=== PATIENT | male | born 1995 ===

== ENCOUNTER 2017-03-27 20:36 | Inpatient (IN) | payer MEDICAID ==
--- NOTE | 2017-03-27 21:00 | C.PDOC ---
History Of Present Illness 22 year male presents to the ER requesting detox from heroin, last use was today. Denies ETOH use or physical complaints. Chief Complaint (Nursing): Substance Abuse History Per: Patient History/Exam Limitations: no limitations Onset/Duration Of Symptoms: Hrs Current Symptoms Are (Timing): Still Present Suicide/Self Injury Attempted (Context): None Modifying Factor(s): Narcotics Associated Symptoms: denies: Depression, Suicidal Thoughts, Suicidal Plan Involuntary Hold By: None Recent travel outside of the [place]: No Past Medical History Reviewed: Historical Data, Nursing Documentation, Vital Signs Vital Signs: Last Vital Signs Temp 97.9 F 03/27/17 20:39 Pulse 90 03/27/17 20:39 Resp 16 03/27/17 20:39 BP 101/71 03/27/17 20:39 Pulse Ox 98 03/27/17 21:18 - Medical History PMH: No Chronic Diseases Surgical History: No Surg Hx Family History: States: Unknown Family Hx - Social History Hx Alcohol Use: No Hx Substance Use: Yes - Immunization History Hx Tetanus Toxoid Vaccination: No Hx Influenza Vaccination: No Hx Pneumococcal Vaccination: No Review Of Systems Constitutional: Negative for: Fever, Chills Gastrointestinal: Negative for: Nausea, Vomiting, Diarrhea Physical Exam - Physical Exam Appears: Non-toxic, No Acute Distress Skin: Normal Color, Warm, Dry Head: Atraumatic, Normacephalic Eye(s): bilateral: Normal Inspection Chest: Symmetrical Cardiovascular: Rhythm Regular Respiratory: Normal Breath Sounds, No Rales, No Rhonchi, No Wheezing Neurological/Psych: Oriented x3, Normal Speech, Other (No focal deficits) ED Course And Treatment - Laboratory Results Result Diagrams: 03/27/17 21:00 03/27/17 21:00 O2 Sat by Pulse Oximetry: 98 (Room air) Pulse Ox Interpretation: Normal Progress Note: Blood work and urinalysis ordered. Disposition Discussed With : Jennifer Mcdonnell Doctor Will See Patient In The: Hospital Counseled Patient/Family Regarding: Diagnosis - Disposition Disposition: HOSPITALIZED Disposition Time: 22:44 Condition: STABLE Forms: [facility] (Welsh) - POA Present On Arrival: None - Clinical Impression Clinical Impression: Opiate abuse, continuous, Urinary tract infection - Scribe Statement The provider has reviewed the documentation as recorded by the Scribe Matt Chavarria All medical record entries made by the Scribe were at my direction and personally dictated by me. I have reviewed the chart and agree that the record accurately reflects my personal performance of the history, physical exam, medical decision making, and the department course for this patient. I have also personally directed, reviewed, and agree with the discharge instructions and disposition.
[2017-03-27 21:19] LABS: BASO # 0.1 K/uL (0.0-0.2); BASO % 1.1 % (0.0-2.0); EOS # 0.2 K/uL (0.0-0.7); EOS % 3.1 % (0.0-4.0); HEMATOCRIT 42.7 % (35.0-51.0); LYMPH # 2.5 K/uL (1.0-4.3); LYMPH % 34.2 % (20.0-40.0); MEAN CELL VOLUME 89.2 fL (80.0-94.0); MEAN CORPUSCULAR HEMOGLOBIN 29.5 pg (27.0-31.0); MEAN PLATELET VOLUME 9.5 fL (7.2-11.7); MONO # 0.6 K/uL (0.0-0.8); MONO % 8.8 % (0.0-10.0); RED CELL DISTRIBUTION WIDTH 13.3 % (11.5-14.5); WHITE BLOOD COUNT 7.3 K/uL (4.8-10.8)
[2017-03-27 21:24] LABS: ALB/GLOB RATIO 1.4 (1.0-2.1); ALCOHOL SERUM < 10 mg/dl (0-10); ALKALINE PHOSPHATASE 52 U/L (38-126); ALT/SGPT 29 U/L (21-72); AST/SGOT 18 U/L (17-59); BILIRUBIN,TOTAL 0.6 mg/dL (0.2-1.3); BLOOD UREA NITROGEN 14 mg/dL (9-20); CALCIUM 8.6 mg/dl (8.6-10.4); CARBON DIOXIDE 35 mmol/L (22-30); CHLORIDE 102 mmol/L (98-107); GFR AFRICAN-AMERICAN > 60; GLUCOSE,RANDOM 54 mg/dL (75-110); POTASSIUM 3.7 mmol/L (3.6-5.2); SODIUM 145 mmol/L (132-148); TOTAL PROTEIN 7.5 g/dL (6.3-8.3)
[2017-03-27 22:07] LABS: RBC URINE 2 /hpf (0-3); URINE BACTERIA RARE (<OCC); URINE BILIRUBIN NEGATIVE (NEGATIVE); URINE BLOOD NEGATIVE (NEGATIVE); URINE COLOR Yellow (YELLOW); URINE GLUCOSE (UA) NORMAL (Normal); URINE KETONE NEGATIVE (NEGATIVE); URINE LEUKOCYTE ESTERASE NEG Leu/uL (Negative); URINE PROTEIN NEGATIVE (NEGATIVE); WBC URINE 30 /hpf (0-5)
[2017-03-27] MEDS ORDERED: Aluminum Hydroxide/Magnesium Hydroxide Susp (30 mL) PO PRN (23:18)
--- NOTE | 2017-03-28 06:47 | PCM.BM ---
<Isabella Ma - Last Filed: 03/28/17 06:45> Treatment Plan Problems - Problems identified on initial assessmt Opiates Abuse Date Initiated: 03/27/17 Time Initiated: 23:35 Assessment reference: NA Status: Active Treatment assets and liabiliti Patient Assests: physically healthy, good support system, negotiates basic needs , good past tx response Patient Liabilities: substance abuse (Opiates, Marijuana) - Milieu Protocol Maintain good personal hygiene: daily Encourage regular showers, daily Remind patient to perform daily oral care Conduct patient checks and document Observation sheet: Q15 minutes Maintain personal safety: every shift Educate patient to report safety concerns to staff, every shift Monitor environment for contraband/sharps Medication safety: Monitor for expected outcome, potential side effects: every shift, Assess barriers to learning: every shift, Assess readiness for medication education: every shift <Yuliet Sarmiento - Last Filed: 03/28/17 11:57> Family Contact Family involvement: Famliy/SO not involved Family contact: Patient agrees to contact - Goals for Treatment Patient goals for treatment: Complete detox and discuss aftercare options with counselor. Discharge/Continuing Care - Education Needs Education Needs: Patient Medication, Patient Diagnosis/Disease Process, Patient Coping Skills, Patient Anger Management skills, Patient Placement options, Patient Community resources, Patient Other (grief group offered) - Discharge Discharge Criteria: No longer exhibiting s/s of withdrawal, Reduction of target symptoms Discharge to:: With Family - Treatment Team Participation Patient/Family/SO Statement: 03/28/17 11:59 "I don't know what I wanna do yet..." Discussed with Family/SO: No Was Patient/Family/SO present at Treatment Team Meeting: Yes <Gabriela Mckeon - Last Filed: 03/29/17 00:15> - Diagnosis (1) Opiate abuse, continuous Status: Acute Interventions: 03/29/17 00:15 * Assess 7x/week regarding severity of withdrawal * Educate regarding risks, benefits, side effects and alternatives of medications * Use Motivational Interviewing for abstinence * Use CBT for relapse prevention * Medication management for withdrawal symptoms * Encourage medication assisted treatment *
--- NOTE | 2017-03-28 15:44 | PCM.PSYCH ---
Initial Psychiatric Evaluation - Initial Psychiatric Evaluation Type of Admission: Voluntary Legal Status: Capacity Chief Complaint (in patient's own words): "I want to get off heroin, I dont want to " History of Present Illness and Precipitating Events: This is a 22 year old male who lives with his mother and sister. He is single with no children and does "odd jobs" as employment. Patient reports heroin use, average use 1 bundle daily via smoking or snorting, last used 1 day ago. He reports he first used heroin intermittently 4 years ago and began regular usage about 2 years ago. He also reports Xanax usage, average 4-5 mg daily, last used 1 day ago. He states he was prescribed Xanax about 4 years ago for anxiety due to family issues. He also reports that 2 years ago he found his brother near their house, later discovering that his brother was killed by his best friend. He reports marijuana use for 10+ years and cigarette use at 1 ppd. He denies any alcohol use, cocaine use, PCP use, or other drug use. He denies any previous overdoses or past detox/rehab. He denies attending NA or AA. He denies any external pressure in deciding to attend detox. He reports previous suboxone usage obtained "from the street." He denies any withdrawal symptoms at this time. Past medical history: denies Past psychiatric history: anxiety, depression Family psychiatric history: denies Family substance use: denies Current Medications: Active Medications Generic Name Dose Route Start Last Admin Trade Name Freq PRN Reason Stop Dose Admin Acetaminophen 650 mg 03/27/17 23:18 Tylenol 325mg Tab PO Q4H PRN Fever greater than 101 F Al Hydrox/Mg Hydrox/Simethicone 30 ml 03/27/17 23:18 Maalox 30 Ml PO TID PRN Indigestion / Heartburn Clonidine HCl 0.1 mg 03/27/17 23:18 Catapres PO Q8 PRN COWS Score More or Equal to 5 Hydroxyzine HCl 25 mg 03/27/17 23:20 03/28/17 00:59 Atarax PO 25 mg Q6 PRN Administration Anxiety Loperamide HCl 2 mg 03/27/17 23:18 Imodium PO Q8 PRN Diarrhea Ondansetron HCl 4 mg 03/27/17 23:18 Zofran Tab PO Q8 PRN Nausea/Vomiting Trazodone HCl 50 mg 03/27/17 23:30 03/28/17 00:10 Desyrel PO 50 mg HS SREE Administration Past Psychiatric History - Past Psychiatric History Previous Treatment History: None Pertinent Medical Hx (Current Medical&Sleep Prob, Allergies): Allergies Allergy/AdvReac Type Severity Reaction Status Date / Time No Known Allergies Allergy Verified 03/27/17 20:42 No Known Home Med 03/27/17 Review of Systems - Review of Systems All systems: reviewed and no additional remarkable complaints except - Psychiatric Psychiatric: Anxiety, Depression, Hopelessness, Irritability. absent: Hallucinations, Homicidal Ideation, Suicidal Ideation Mental Status Examination - Personal Presentation Personal Presentation: Looks stated age - Affect Affect: Constricted - Motor Activity Motor Activity: Calm - Reliability in Providing Information Reliability in Providing Information: Poor, due to altered mood - Speech Speech: Disorganized - Mood Mood: Anxious - Formal Thought Process Formal Thought Process: No Impairment - Obsessions/Compulsions Obsessions: No Compulsions: No - Cognitive Functions Sensorium: Alert Attention/Concentration: Attentive Abstract Thinking: [place] Estimate of Intelligence: Average Judgement: Intact, as evidence by: Good judgement Memory: Recent intact, as evidence by: Ability to recall events of the day, Remote intact, as evidenced by: Abilit to recall sig. life events - Risk Risk: Diminished functioning - Strength & Assets Inventory Strength & Assets Inventory: Cooperative - Limitations Limitations: Other DSM 5 DX - DSM 5 DSM 5 Diagnosis: Opioid use disorder severe Opioid withdrawal Tobacco use disorder severe - Recommended/Plan of Treatment Treatment Recommendations and Plan of Treatment: Subutex detox As needed medications Attend groups and activities Supportive therapy and psychoeducation [place] for abstinence CBT for relapse prevention Encourage MAT Refer to rehab or IOP, and self-help groups Smoking cessation with [place] Nicotine patch if requested 31 min Projected ELOS: 4-5 days Prognosis: Good with treatment Discharge Plan and Discharge Criteria: No withdrawal symptoms Refer to rehab - Smoking Cessation Smoking Cessation Initiated: Yes
[2017-03-28] MEDS ORDERED: Buprenorphine Hydrochloride 2 mg SL ONE ×2 (17:59→19:00)
[2017-03-29] MEDS: Buprenorphine Hydrochloride 2 mg SL SCH (09:37)
--- NOTE | 2017-03-29 14:58 | PCM.PYCHPN ---
Psychiatric Progress Note - Psychiatric Progress Note Patient seen today, length of contact: 16 min Patient Chief Complaint: "I'm alright" Problems Identified/Issues Discussed: This patient was seen, chart reviewed, and case discussed with staff. Patient reports good sleep overnight and good appetite yesterday. He continues to deny any withdrawal symptoms. He reports being in good, positive mood. He offers no complaints today. Patient is compliant with medications and denies any side effects. Symptoms are improving but need more time to stabilize. After care discussed, patient hopes to go to [facility]. Support and psychoeducation given. Medication Change: Yes (detox changes daily) Medical Record Reviewed: Yes Mental Status Examination - Cognitive Function Orientation: Person, Place, Situation, Time Memory: Intact Attention: Poor Concentration: Poor Association: WNL Fund of Knowledge: Poor - Mood Mood: Anxious - Affect Affect: Constricted - Speech Speech: Soft - Formal Thought Process Formal Thought Process: No Impairment - Suicidal Ideation Suicidal Ideation: No - Homicidal Ideation Homicidal Ideation: No Goal/Treatment Plan - Goal/Treatment Plan Need for Continued Stay: Severe depression anxiety, Discharge may exacerbated symptoms, Severe functional impairment Progress Toward Problem(s) and Goals/Treatment Plan: Subutex detox As needed medications Attend groups and activities Supportive therapy and psychoeducation [place] for abstinence CBT for relapse prevention Encourage MAT Refer to rehab or IOP, and self-help groups Smoking cessation with [place] Nicotine patch if requested
[2017-03-30] MEDS: Buprenorphine Hydrochloride 2 mg SL SCH (09:43)
[2017-03-30] MEDS ORDERED: Buprenorphine Hydrochloride 2 mg SL ONE (11:45)
--- NOTE | 2017-03-30 15:28 | PCM.PYCHPN ---
Psychiatric Progress Note - Psychiatric Progress Note Patient seen today, length of contact: 16 min Patient Chief Complaint: "I'm good" Problems Identified/Issues Discussed: This patient was seen, chart reviewed, and case discussed with staff. Patient reports no events overnight. He reports good sleep and appetite. He continues to deny any withdrawal symptoms. He continues to report improvement in his mood. Patient initially refused today's dose of Subutex, but agreed to medication changes after discussion. Symptoms are improving but need more time to stabilize After care discussed, was denied form [facility] and hopes to attend IOP in [place], [place]. Support and psychoeducation given. Medication Change: Yes (Subutex taper) Medical Record Reviewed: Yes Mental Status Examination - Cognitive Function Orientation: Person, Place, Situation, Time Memory: Intact Attention: WNL Concentration: Poor Association: WNL Fund of Knowledge: Poor - Mood Mood: Anxious - Affect Affect: Constricted - Speech Speech: Soft - Formal Thought Process Formal Thought Process: No Impairment - Suicidal Ideation Suicidal Ideation: No - Homicidal Ideation Homicidal Ideation: No Goal/Treatment Plan - Goal/Treatment Plan Need for Continued Stay: Severe depression anxiety, Discharge may exacerbated symptoms, Severe functional impairment Progress Toward Problem(s) and Goals/Treatment Plan: Subutex detox As needed medications Attend groups and activities Supportive therapy and psychoeducation [place] for abstinence CBT for relapse prevention Encourage MAT Refer to rehab or IOP, and self-help groups Smoking cessation with [place] Nicotine patch if requested - Smoking Cessation Smoking Cessation Initiated: Yes
[2017-03-30 16:53] VITALS: RESP 18
[2017-03-31 06:15] VITALS: O2SAT 98
--- NOTE | 2017-03-31 07:46 | PCM.PYCHDC ---
Mental Status Examination - Mental Status Examination Orientation: Person Discharge Summary - Discharge Note Consultations:: List each consultation separately and include: 1. Reason for request. 2. Findings. 3. Follow-up Summary of Hospital Course include:: 1. Description of specific treatment plan utilized for patients during their course of treatmen. 2. Summarize the time- course for resolution of acute symptoms and/or regressed behaviors. 3. Describe issues identified and worked on during hospitalization. 4. Describe medication utilized. 5. Describe medical problems identified and treated. 6. Reassessment of suicide risk Summary of Hospital Course: This is a 22 year old male who lives with his mother and sister. He is single with no children and does "odd jobs" as employment. Patient reports heroin use, average use 1 bundle daily via smoking or snorting, last used 1 day ago. He reports he first used heroin intermittently 4 years ago and began regular usage about 2 years ago. He also reports Xanax usage, average 4-5 mg daily, last used 1 day ago. He states he was prescribed Xanax about 4 years ago for anxiety due to family issues. He also reports that 2 years ago he found his brother near their house, later discovering that his brother was killed by his best friend. He reports marijuana use for 10+ years and cigarette use at 1 ppd. He denies any alcohol use, cocaine use, PCP use, or other drug use. He denies any previous overdoses or past detox/rehab. He denies attending NA or AA. He denies any external pressure in deciding to attend detox. He reports previous suboxone usage obtained "from the street." He denies any withdrawal symptoms at this time. Past medical history: denies Past psychiatric history: anxiety, depression Family psychiatric history: denies Family substance use: denies - Diagnosis (1) Opiate abuse, continuous Current Visit: Yes Status: Acute - Final Diagnosis (DSM 5) Condition upon Discharge: STABLE Disposition: HOME/ ROUTINE Follow-up Treatment Plan: Subutex detox As needed medications Attend groups and activities Supportive therapy and psychoeducation [place] for abstinence CBT for relapse prevention Encourage MAT Refer to rehab or IOP, and self-help groups Smoking cessation with [place] Nicotine patch if requested Prescriptions/Medication Reconciliation: traZODone [Desyrel] 50 mg PO HS #30 tab
[2017-03-31] MEDS ORDERED: Buprenorphine Hydrochloride 2 mg SL ONE (09:00)
[2017-03-31 10:19] VITALS: BP 109/68; PULSE 75; TEMP 98.2
== END 2017-03-31 11:45 | disposition home or self-care (01) | DRG 429 ==
LOC: C.ER 20:36 → C.7D 22:45
PROVIDERS: ADMIT Psychiatry & Neurology Psychiatry; ATTEND Psychiatry & Neurology Psychiatry
PROC: HZ2ZZZZ Detoxification Services for Substance Abuse Treatment (ICD-10-PCS; principal; 2017-03-27)
PROC: HZ52ZZZ Individual Psychotherapy for Substance Abuse Treatment, Cognitive-Behavioral (ICD-10-PCS; 2017-03-27)
PROC: HZ59ZZZ Individual Psychotherapy for Substance Abuse Treatment, Supportive (ICD-10-PCS; 2017-03-27)
PROC: HZ56ZZZ Individual Psychotherapy for Substance Abuse Treatment, Psychoeducation (ICD-10-PCS; 2017-03-27)
DX: F06.4 Anxiety disorder due to known physiological condition (principal); F11.23 Opioid dependence with withdrawal; F12.90 Cannabis use, unspecified, uncomplicated; F17.200 Nicotine dependence, unspecified, uncomplicated; F32.9 Major depressive disorder, single episode, unspecified

== ENCOUNTER 2018-06-07 22:09 | Emergency (ER) | payer SELFPAY ==
[2018-06-07 22:31] VITALS: O2SAT 99
--- NOTE | 2018-06-07 23:05 | C.PDOC ---
History Of Present Illness 23 year old male with Hx of ETOH abuse presents requesting detox. Chief Complaint (Nursing): Substance Abuse History Per: Patient History/Exam Limitations: no limitations Onset/Duration Of Symptoms: Hrs Current Symptoms Are (Timing): Still Present Associated Symptoms: denies: Depression, Suicidal Thoughts Involuntary Hold By: None Recent travel outside of the [place]: No Past Medical History Reviewed: Historical Data, Nursing Documentation, Vital Signs Vital Signs: Last Vital Signs Temp 98.4 F 06/07/18 22:23 Pulse 77 06/07/18 22:23 Resp 22 06/07/18 22:23 BP 113/79 06/07/18 22:23 Pulse Ox 99 06/07/18 22:23 - Medical History PMH: Denies: Diabetes, Hepatitis, HIV, HTN, Seizures, Sexually Transmitted Disease - [facility] Procedures DETOXIFICATION SERVICES FOR SUBSTANCE ABUSE TREATMENT (03/27/17) INDIV PSYCHOTHERAPY FOR SUBSTANCE ABUSE TREATMENT, SUPPORT (03/27/17) INDIV PSYCHOTHERAPY FOR SUBSTANCE ABUSE, COGNITIV BEHAVIORAL (03/27/17) INDIV PSYCHOTHERAPY FOR SUBSTANCE ABUSE, PSYCHOEDUCATION (03/27/17) Family History: States: Unknown Family Hx - Social History Hx Alcohol Use: No Hx Substance Use: Yes - Immunization History Hx Tetanus Toxoid Vaccination: No Hx Influenza Vaccination: No Hx Pneumococcal Vaccination: No Review Of Systems Constitutional: Negative for: Fever, Chills Cardiovascular: Negative for: Chest Pain, Palpitations Respiratory: Negative for: Cough, Shortness of Breath Gastrointestinal: Negative for: Nausea, Vomiting Neurological: Negative for: Weakness, Numbness Physical Exam - Physical Exam Appears: Non-toxic, No Acute Distress Skin: Normal Color, Warm, Dry Head: Atraumatic, Normacephalic Eye(s): bilateral: Normal Inspection Oral Mucosa: Moist Neck: Normal, Supple Chest: Symmetrical, No Tenderness Cardiovascular: Rhythm Regular Respiratory: Normal Breath Sounds, No Rales, No Rhonchi, No Wheezing Gastrointestinal/Abdominal: Soft, No Tenderness Neurological/Psych: Oriented x3, Normal Speech ED Course And Treatment O2 Sat by Pulse Oximetry: 99 (Room air) Pulse Ox Interpretation: Normal Progress Note: Patient wants to go home after being told there are no detox beds, will call psych department for availability. Disposition Counseled Patient/Family Regarding: Diagnosis - Disposition Referrals: [facility] [Outside] Disposition: HOME/ ROUTINE Disposition Time: 23:02 Condition: STABLE Instructions: Alcohol Abuse and Alcoholism (DC) Forms: [facility] (Croatian) - POA Present On Arrival: None - Clinical Impression Clinical Impression: Alcohol abuse - Scribe Statement The provider has reviewed the documentation as recorded by the Scribolive Chavarria All medical record entries made by the Scribe were at my direction and personally dictated by me. I have reviewed the chart and agree that the record accurately reflects my personal performance of the history, physical exam, medical decision making, and the department course for this patient. I have also personally directed, reviewed, and agree with the discharge instructions and disposition.
[2018-06-07 23:25] VITALS: BP 121/74; PULSE 74; RESP 17; TEMP 98.6
== END 2018-06-07 23:24 | disposition home or self-care (01) ==
LOC: C.ER 22:09
DX: F10.10 Alcohol abuse, uncomplicated (principal); Y90.9 Presence of alcohol in blood, level not specified